=== PATIENT | female | born 1945 | race Caucasian/White ===

== ENCOUNTER 2017-06-12 19:30 | Emergency (ER) | payer BC, MEDICARE ==
[~2017-06-12] VITALS: Ht 162.6 cm; Wt 54.4 kg
[~2017-06-12 19:30] MED LIST: ACETAMINOPHEN-1 EAC1 PO; ACTONEL 150 MG150 MG; ACTONEL150 MG; AFRIN15 ML NS; AMBIEN 10 MG TA10 MG; ASPIRIN81 M2; BROVANA15 MCG/2 M INH; CARISOPRODOL; CEFUROXIME250 MG PO; CEPHALEXIN 500500 M3 PO; CIPROFLOXACIN500 M1 PO; CITRACAL; COMBIVENT; DAYPRO600 MG; HYDROCODONE-APA1 TA1 PO; MEDROL DOSPAK21 TAB PO; MEDROLDOSEPACK PO; MIACALCIN; NORCO 5-325 TA1 EACH PO; NORVASC 5 MG TAB5 MG; PREDNISONE 20 M20 M1 PO; PREMARIN0.9 M1; ROBAXIN 750 MG750 M1 PO; ULTRAM 50MG TAB50 MG PO; XANAX 0.5 MG0.5 M1
[2017-06-12] MEDS ORDERED: FLONASE 0.05%50 MCG NASAL (20:19)
[2017-06-12] MEDS ORDERED: TESSALON PERLE100 MG PO (20:19)
[2017-06-12] MEDS ORDERED: MUCINEX DM ER1 EACH PO (20:19)
[2017-06-12] MEDS ORDERED: CLARITIN10 M3 PO (20:19)
[2017-06-12 20:33] VITALS: BP 138/63
== END 2017-06-12 20:34 | disposition home or self-care (01) ==
LOC: M.ERS 19:30
DX: J06.9 Acute upper respiratory infection, unspecified (principal); M81.0 Age-related osteoporosis without current pathological fracture; J44.9 Chronic obstructive pulmonary disease, unspecified; F17.210 Nicotine dependence, cigarettes, uncomplicated; Z90.49 Acquired absence of other specified parts of digestive tract; Z90.710 Acquired absence of both cervix and uterus

== ENCOUNTER 2018-04-06 14:50 | Emergency (ER) | payer BC, MEDICARE ==
[~2018-04-06] VITALS: Ht 162.6 cm; Wt 52.2 kg
[~2018-04-06 14:50] MED LIST changes: +CLARITIN10 M3 PO; +FLONASE 0.05%50 MCG NASAL; +MUCINEX DM ER1 EACH PO; +TESSALON PERLE100 MG PO
[2018-04-06] MEDS ORDERED: FLEXERIL PO (15:15)
[2018-04-06 18:04] LABS: HEMATOCRIT 25.7 % (37.0-47.0); HEMOGLOBIN 8.8 gm/dL (12.0-15.0); MCH 33.4 pg (26.0-34.0); MCHC 34.3 g/dL (28.0-37.0); MCV 97.3 fL (80.0-100.0); MPV 6.9 fl. (7.2-11.1); NUCLEATED RBCS 0 /100WBC; PLATELET COUNT* 383 thou/uL (150-400); RBC 2.64 mil/uL (4.20-5.00); RDW-CV 21.2 % (10.5-14.5)
[2018-04-06 18:22] LABS: CALCIUM 9.1 mg/dL (8.5-10.1); CREATININE 1.1 mg/dL (0.6-1.3)
[2018-04-06 18:27] LABS: ALBUMIN 2.4 g/dL (3.4-5.0); POTASSIUM 2.8 mmol/L (3.5-5.1); TOTAL BILIRUBIN 0.5 mg/dL (<0.1-1.0); TOTAL PROTEIN 6.7 g/dL (6.4-8.2)
[2018-04-06 18:36] LABS: ABSOLUTE LYMPHOCYTES 0.5 thou/uL (0.8-5.3); ABSOLUTE MONOCYTES 1.3 thou/uL (0.0-1.2); ABSOLUTE NEUTROPHILS 3.2 thou/uL (1.6-8.1)
[2018-04-06 18:37] LABS: ANISOCYTOSIS 2+; PLATELET ESTIMATE ADEQUATE
[2018-04-06 18:39] LABS: MICROCYTES Occasional
[2018-04-06 19:18] VITALS: BP 123/60
== END 2018-04-06 19:18 | disposition left against medical advice (07) ==
LOC: M.ERS 14:50
PROVIDERS: Physician Assistant
DX: E86.0 Dehydration (principal); E87.6 Hypokalemia; C32.9 Malignant neoplasm of larynx, unspecified; R13.10 Dysphagia, unspecified; M81.0 Age-related osteoporosis without current pathological fracture; J44.9 Chronic obstructive pulmonary disease, unspecified; Z90.49 Acquired absence of other specified parts of digestive tract; Z90.710 Acquired absence of both cervix and uterus

== ENCOUNTER 2019-01-13 16:39 | Emergency (ER) | payer BC, MEDICARE ==
[~2019-01-13] VITALS: Ht 162.6 cm; Wt 52.6 kg
[~2019-01-13 16:39] MED LIST changes: +FLEXERIL PO
[2019-01-13] MEDS ORDERED: SOMA250 MG PO (16:57)
[2019-01-13] MEDS ORDERED: MAGIC MOUTHWASH SWISH&SPIT (17:18)
[2019-01-13 18:11] VITALS: BP 122/60
== END 2019-01-13 18:12 | disposition home or self-care (01) ==
LOC: M.ERS 16:39
DX: R22.0 Localized swelling, mass and lump, head (principal); T65.91XA Toxic effect of unspecified substance, accidental (unintentional), initial encounter; J44.9 Chronic obstructive pulmonary disease, unspecified; M81.0 Age-related osteoporosis without current pathological fracture; F17.210 Nicotine dependence, cigarettes, uncomplicated; Z90.710 Acquired absence of both cervix and uterus; Z90.49 Acquired absence of other specified parts of digestive tract; Y92.89 Other specified places as the place of occurrence of the external cause